=== PATIENT | female | born 1960 | race Two or more races ===

== ENCOUNTER 2023-05-25 15:07 | Emergency (ER) | payer SELFPAY ==
[~2023-05-25] VITALS: Ht 162.6 cm; Wt 77.1 kg
[2023-05-25 15:21] VITALS: O2SAT 97
[2023-05-25] MEDS ORDERED: GUAI600T31 PO (16:29)
[2023-05-25] MEDS ORDERED: BENZ-13 PO (16:29)
[2023-05-25] MEDS ORDERED: ALBU8.5H8 INH (16:29)
== END 2023-05-25 16:41 | disposition home or self-care (01) ==
LOC: ER 15:23
DX: J06.9 Acute upper respiratory infection, unspecified (principal); R05.9 Cough, unspecified; Z79.899 Other long term (current) drug therapy
CPT/HCPCS: 71045; A4606; A4663

== ENCOUNTER 2024-02-09 20:59 | Emergency (ER) | payer OTHER ==
[~2024-02-09] VITALS: Ht 162.6 cm; Wt 65.8 kg
[~2024-02-09 20:59] MED LIST: ALBU8.5H8 INH; BENZ-13 PO; GUAI600T31 PO
[2024-02-09 21:20] LABS: *BILIRUBIN,URIN NEGATIVE (NEGATIVE); *BLOOD, URINE 3+ (NEGATIVE); *CLARITY,URINE CLOUDY (CLEAR); *COLOR,URINE YELLOW (YELLOW); *KETONES,URINE NEGATIVE (NEGATIVE); *PROTEIN,URINE 1+ (NEGATIVE); *UROBILINOGEN,URINE 0.2 E.U./dl (NORMAL); LEUKOCYTE ESTERASE ,URINE NEGATIVE (NEGATIVE); NITRITE, URINE POSITIVE (NEGATIVE); UGLUCOSE 2+ (NEGATIVE)
[2024-02-09 21:30] LABS: BACTERIA,URINE MODERATE /HPF (NONE SEEN); SQUAMOUS EPITHELIAL CELL,UR FEW /HPF (NONE SEEN)
[2024-02-09 21:33] LABS: RBC,URINE 50-80 /HPF (0-3)
[2024-02-09] MEDS ORDERED: NITR-84 PO (22:11)
[2024-02-09] MEDS ORDERED: PHEN-705 PO (22:11)
[2024-02-09] MEDS ORDERED: PHENAZOPYRIDINE HCL 100 MG TABLET ONE (22:15)
[2024-02-09] MEDS ORDERED: LIDOCAINE HCL 1% 20 ML VIAL ONE (22:15)
[2024-02-09] MEDS ORDERED: NITROFURANTOIN/NITROFURAN MAC 100 MG CAPSULE PO ONE (22:15)
[2024-02-09] MEDS ORDERED: CEFTRIAXONE 1 G VIAL ONE (22:15)
[2024-02-09] MEDS: PHENAZOPYRIDINE HCL 100 MG TABLET PO ONE (22:20)
[2024-02-09] MEDS: NITROFURANTOIN/NITROFURAN MAC 100 MG CAPSULE PO ONE (22:20)
[2024-02-09] MEDS: CEFTRIAXONE 1 G VIAL IM ONE (22:22)
[2024-02-09 22:25] VITALS: BP 140/65; TEMP 98.6; O2SAT 99
== END 2024-02-09 22:26 | disposition home or self-care (01) ==
LOC: ER 21:04
DX: N30.91 Cystitis, unspecified with hematuria (principal); R31.9 Hematuria, unspecified; Z79.899 Other long term (current) drug therapy; Z90.710 Acquired absence of both cervix and uterus
CPT/HCPCS: 99284; 81001; 96372; 87086; J0696; J3490; A4606; A4663